=== PATIENT | male | born 1975 | race Caucasian/White ===

== ENCOUNTER → 2024-04-24 11:16 | Outpatient (REF) | payer SELFPAY | LOC: HWRAD 11:16 | PROVIDERS: ATTENDING PHYSICIAN Student in an Organized Health Care Education/Training Program | DX: Z00.00 Encounter for general adult medical examination without abnormal findings (principal); Z82.49 Family history of ischemic heart disease and other diseases of the circulatory system | CPT/HCPCS: 75571 ==